=== PATIENT | female | born 1965 | race African-American/Black ===

== ENCOUNTER 2023-04-24 12:38 | Emergency (ER) | payer OTHER ==
[~2023-04-24] VITALS: Ht 180.3 cm; Wt 84.8 kg
[2023-04-24 12:50] VITALS: BP 139/93; TEMP 98; O2SAT 98
[2023-04-24] MEDS: BACITRACIN ZINC OINT PACKET 1 EA PACKET TP ONE (14:30)
[2023-04-24] MEDS: LIDOCAINE/PRILOCAINE 1 EA KIT TP ONE (14:30)
[2023-04-24] MEDS ORDERED: HYDR30CR79 TP (14:35)
[2023-04-24] MEDS ORDERED: DOCU-141 PO (14:35)
[2023-04-24] MEDS ORDERED: PRAM15FO5 TP (14:35)
[2023-04-24] MEDS ORDERED: LIDOCAINE/PRILOCAINE (5GM) 5 GM TUBE TP ONE (14:49)
[2023-04-24] MEDS ORDERED: BACITRACIN ZINC OINT PACKET 1 EA PACKET TP ONE (14:49)
== END 2023-04-24 14:53 | disposition home or self-care (01) ==
LOC: ER 12:43
DX: K64.5 Perianal venous thrombosis (principal); Z88.8 Allergy status to other drugs, medicaments and biological substances